=== PATIENT | female | born 1980 ===

== ENCOUNTER 2021-12-01 08:21 | Inpatient (IN) | payer OTHER ==
[~2021-12-01] VITALS: Ht 152.4 cm; Wt 78.5 kg
[2021-12-07] VITALS (19 sets, daily range): BP systolic 88–128; BP diastolic 54–85; PULSE 66–80; TEMP 98–98.7
[2021-12-07] MEDS ORDERED: PRENATAL TABLET PO (06:09)
[2021-12-07 06:58] LABS: HEMATOCRIT 37.1 % (37.0-47.0); HEMOGLOBIN 12.8 g/dl (12.5-16.0); MEAN CELL VOLUME 94 fl (80.0-100.0); MEAN CORPUSCULAR HEMOGLOBIN 32 pg (27-31); MEAN CORPUSCULAR HGB CONC 35 g/dl (33.0-37.0); MEAN PLATELET VOLUME 11.1 fl (7.4-10.4); PLATELET COUNT 208 K/mm3 (130-400); RED BLOOD COUNT 3.97 M/mm3 (4.10-5.30); REDCELL DISTRIBUTION WIDTH-CV 13.9 % (11.5-14.5)
[2021-12-07 07:57] LABS: BAND 9 % (0-10); EOSINOPHIL 3 % (0-4); LYMPHOCYTE 16 % (20.0-51.0); METAMYELOCYTE 2 % (0-0); NEUTROPHILS 66 % (42.0-75.2); PLATELET ESTIMATE NORMAL (NORMAL)
--- NOTE | 2021-12-07 10:04 | NUR ---
Initial visit attempt; Patient out of room, Felt Cementer left card offering God's blessings and information regarding the availability of [facility] at our hospital.
--- NOTE | 2021-12-07 14:50 | NUR ---
Patient assisted to edge of bed to dangle feet, ambulates to bathroom, gee catheter removed and patient tolerates well. Pericare done, new gown/pad/underwear on. Patient ambulates back to bed.
[2021-12-08 08:13] VITALS: BP 121/63; PULSE 68; TEMP 97.3
[2021-12-08 16:13] VITALS: BP 106/58; PULSE 69; TEMP 98.1
[2021-12-08 20:30] VITALS: BP 126/69; PULSE 80; TEMP 98
[2021-12-09] MEDS ORDERED: MOTRIN 800800 MG/TAB PO (05:31)
[2021-12-09] MEDS ORDERED: PERCOCET 325 MG1 TA2 PO (05:31)
[2021-12-09 10:00] VITALS: BP 107/61; PULSE 67; TEMP 98.3
== END 2021-12-09 12:05 | disposition home or self-care (01) | DRG 788 ==
LOC: OB 12-07 05:28
PROVIDERS: ADMIT Obstetrics & Gynecology
PROC: 10D00Z1 Extraction of Products of Conception, Low, Open Approach (ICD-10-PCS; principal; 2021-12-07)
PROC: 0UB00ZZ Excision of Right Ovary, Open Approach (ICD-10-PCS; 2021-12-07)
PROC: 0DNW0ZZ Release Peritoneum, Open Approach (ICD-10-PCS; 2021-12-07)
DX: O34.211 Maternal care for low transverse scar from previous cesarean delivery (principal); O34.83 Maternal care for other abnormalities of pelvic organs, third trimester; N83.201 Unspecified ovarian cyst, right side; Z3A.39 39 weeks gestation of pregnancy; Z37.0 Single live birth; O99.62 Diseases of the digestive system complicating childbirth; K66.0 Peritoneal adhesions (postprocedural) (postinfection)
CPT/HCPCS: J0171; J0690; J1885; J2370; J2405; J2590; J7120